=== PATIENT | male | born 1980 | race Caucasian/White ===

== ENCOUNTER 2017-03-11 19:17 | Emergency (ER) | payer SELFPAY | END 2017-03-11 19:55 | disposition home or self-care (01) | LOC: ERS 19:17 | DX: K05.10 Chronic gingivitis, plaque induced (principal); K02.9 Dental caries, unspecified; K03.81 Cracked tooth; F17.210 Nicotine dependence, cigarettes, uncomplicated | CPT/HCPCS: 99283 ==

== ENCOUNTER 2017-03-31 02:04 | Emergency (ER) | payer OTHER, SELFPAY ==
[2017-03-31 02:55] LABS: #Basophils 0.1 thou/uL (0.0-0.2); #Eosinphils 0.2 thou/uL (0.0-0.7); #Monocytes 0.7 thou/uL (0.11-0.59); #Neutrophils 4.7 thou/uL (1.40-6.50); %Basophils 1.1 % (0.0-1.0); %Eosinophils 2.4 % (0.0-10.0); %Monocytes 8.4 % (0.0-10.0); Hematocrit 49.3 % (42.0-52.0); Mean Platelet Volume 5.8 fL (7.4-10.4); Red Blood Cell (RBC) Count 5.32 mill/uL (4.70-6.10); White Blood Cell (WBC) Count 8.7 thou/uL (4.8-10.8)
[2017-03-31 03:17] LABS: ALT (SGPT) 69 U/L (8-55); AST (SGOT) 31 U/L (5-34); Alkaline Phosphatase 65 U/L (40-150); Anion Gap 14 mmol/L (10-20); BUN (Urea Nitrogen) 15 mg/dL (8.9-20.6); Bilirubin, Total 0.4 mg/dL (0.2-1.2); Calc. Creatinine Clearance 0 mL/min (70-130); Calcium 9.1 mg/dL (7.8-10.44); Carbon Dioxide 20 mmol/L (22-29); Chloride 112 mmol/L (98-107); Estimated GFR-MDRD 72; Globulin 2.9 g/dL (2.4-3.5); Protein, Total 7.6 g/dL (6.0-8.3)
[2017-03-31 03:23] LABS: Troponin I 0.011 ng/mL (< 0.028)
--- NOTE | 2017-03-31 08:19 | CT ---
PRELIMINARY REPORT/[facility]/EMERGENCY AFTER HOURS PROCEDURE: EXAM: CT Head Without Intravenous Contrast EXAM DATE/TIME: 03/31/2017 2:23 AM CLINICAL HISTORY: 37 years old, male; Signs and symptoms; Altered mental status/memory loss; Confusion or disorientati on; Patient HX: Er 3; Pt m37 presents to ed via ems after being found outside of a bar heavily intox icated. Pt was drowsy but stated he was drinking du all night. Denied any other problems other t davis being drunk. TECHNIQUE: Axial computed tomography images of the head/brain without intravenous contrast. COMPARISON: No relevant prior studies available. FINDINGS: Brain: No evidence of acute intracranial hemorrhage, extraxial fluid or midline shift. No evidence o f acute large vessel infarction. Ventricles: Unremarkable. No ventriculomegaly. Bones/joints: Unremarkable. No acute fracture. Prior fixation left frontal-orbital bones. Soft tissues: Unremarkable. Sinuses: Moderate bilateral ethmoid, right frontal, left maxillary and central sphenoid sinus fluid. Mastoid air cells: Unremarkable as visualized. No mastoid effusion. IMPRESSION: 1. No evidence of acute intracranial hemorrhage, extraxial fluid or midline shift. 2. No evidence of acute large vessel infarction. 3. Moderate fluid throughout the paranasal sinuses as described above. Thank you for allowing us to participate in the care of your patient. Dictated and Authenticated by: Konstantin Corbett MD 03/31/2017 2:42 AM Central Time ([place] \T\ [place]) FINAL REPORT EMERGENCY AFTER HOURS CT BRAIN WITHOUT CONTRAST: Date: 03/31/17 FINDINGS/IMPRESSION: I agree with the findings and impression given in the preliminary report per [facility] physician. No evid ence of acute intracranial abnormality. POS: [facility]
== END 2017-03-31 05:30 | disposition home or self-care (01) ==
LOC: ERS 02:04
DX: F10.129 Alcohol abuse with intoxication, unspecified (principal); F41.9 Anxiety disorder, unspecified; F32.9 Major depressive disorder, single episode, unspecified; F17.210 Nicotine dependence, cigarettes, uncomplicated
CPT/HCPCS: 70450; 80053; 82553; 84484; 85025; 93005; 94760